=== PATIENT | female | born 1950 | race Caucasian/White ===

== ENCOUNTER 2016-06-23 09:10 | Outpatient (CLI) | payer OTHER | END 2016-06-23 09:11 | disposition home or self-care (01) | DX: Z12.31 Encounter for screening mammogram for malignant neoplasm of breast (principal) ==

== ENCOUNTER 2016-10-07 13:08 | Outpatient (CLI) | payer OTHER ==
--- NOTE | 2016-10-07 18:14 | Ultrasound Report ---
ULTRASOUND OF THE NECK: 10/07/2016 CLINICAL HISTORY: The patient has a soft tissue prominence in her left neck. A 66-year-old female wit h a soft tissue mass involving the left neck and shoulder. The patient noticed this soft mass over last one and one-half years. TECHNIQUE: Real-time scanning was performed with service center representative static images obtained. FINDINGS: There is a well-circumscribed mildly hypoechoic soft tissue mass in the left neck immediat graeme posterior to the subcutaneous soft tissues. This is in the muscle layer of the left neck. It denise ures 3.5 cm by 0.95 cm by 1.5 cm. The finding most likely represents a benign lipoma. Recommend a MRI of the soft tissues of the left neck/shoulder to further confirm the benign origin of this finding. IMPRESSION: A 3.5 CM BY 0.95 CM BY 1.5 CM WELL-CIRCUMSCRIBED MASS INVOLVING THE MUSCLE LAYER IMMEDIA TELY BENEATH THE SUBCUTANEOUS SOFT TISSUES AT THE JUNCTION OF THE LEFT NECK AND SHOULDER. 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 RECOMMEND A MRI OF THE SOFT TISSUES OF THE LEFT NECK SHOULDE R JUNCTION WITHIN THE LEFT SUPRACLAVICULAR REGION TO FURTHER CONFIRM THIS BENIGN ETIOLOGY. JOB #: [id number] EXT JOB #:[id number]
== END 2016-10-07 13:09 | disposition home or self-care (01) ==
LOC: DI 13:08
PROVIDERS: ATTEND Family Medicine
DX: M79.9 Soft tissue disorder, unspecified (principal)
CPT/HCPCS: 76536

== ENCOUNTER 2017-05-05 14:46 | Outpatient (CLI) | payer OTHER | END 2017-05-05 14:47 | disposition home or self-care (01) | LOC: SC 14:46 | PROVIDERS: ATTEND Nurse Practitioner Family | DX: G47.33 Obstructive sleep apnea (adult) (pediatric) (principal); F32.9 Major depressive disorder, single episode, unspecified | CPT/HCPCS: 99204; 99212 ==

== ENCOUNTER 2017-07-02 22:40 | Outpatient (CLI) | payer OTHER | END 2017-07-02 22:41 | disposition home or self-care (01) | LOC: SC 22:40 | PROVIDERS: ATTEND Internal Medicine Pulmonary Disease | DX: G47.33 Obstructive sleep apnea (adult) (pediatric) (principal); G47.61 Periodic limb movement disorder | CPT/HCPCS: 95810 ==

== ENCOUNTER 2017-08-12 10:43 | Outpatient (CLI) | payer OTHER | END 2017-08-12 10:44 | disposition home or self-care (01) | LOC: SC 10:43 | PROVIDERS: ATTEND Nurse Practitioner Family | DX: G47.33 Obstructive sleep apnea (adult) (pediatric) (principal); G47.61 Periodic limb movement disorder | CPT/HCPCS: 99212; 99214 ==

== ENCOUNTER 2017-08-26 09:05 | Outpatient (CLI) | payer OTHER ==
[2017-08-26 12:33] LABS: BASOPHILS # (AUTO) 0.1 10^3/uL (0.0-0.1); EOSINOPHILS # (AUTO) 0.3 10^3/uL (0.0-0.7); EOSINOPHILS % (AUTO) 5.6 %; HGB - HEMOGLOBIN 13.3 g/dL (12.0-16.0); LYMPHOCYTES # (AUTO) 1.7 10^3/uL (1.5-3.5); LYMPHOCYTES % (AUTO) 30.3 %; MEAN CORPUSCULAR HEMOGLOBIN 33.1 pg (27.0-31.0); MEAN CORPUSCULAR HGB CONC 34.2 g/dL (32.0-36.0); MEAN CORPUSCULAR VOLUME 96.9 fL (81.0-99.0); MEAN PLATELET VOLUME 7.4 fL (7.9-10.8); MONOCYTES # (AUTO) 0.5 10^3/uL (0.0-1.0); MONOCYTES % (AUTO) 8.9 %; NEUTROPHILS % (AUTO) 54.2 %; PLT - PLATELET COUNT 234 10^3/uL (130-450); RED CELL DISTRIBUTION WIDTH 12.4 % (12.0-15.0); WHITE BLOOD COUNT 5.6 x10^3/uL (4.8-10.8)
[2017-08-26 13:46] LABS: ALBUMIN 3.9 g/dL (3.2-5.5); ALBUMIN/GLOBULIN RATIO 1.2 (1.0-2.2); ALKALINE PHOSPHATASE 67 IU/L (42-121); ALT ALANINE AMINOTRANSFERASE 37 IU/L (10-60); AST ASPARTATE AMINOTRANSFERASE 37 IU/L (10-42); BILIRUBIN,TOTAL 0.4 mg/dL (0.2-1.0); BUN - BLOOD UREA NITROGEN 16 mg/dL (6-20); CALCIUM 9.2 mg/dL (8.5-10.3); CARBON DIOXIDE - CO2 24 mmol/L (21-32); CHLORIDE 106 mmol/L (101-111); CHOL/HDL RATIO 3.7 (<4.4); CHOLESTEROL 220 mg/dL; CREATININE 0.8 mg/dL (0.4-1.0); GFR - MDRD 72 (>89); GLUCOSE 107 mg/dL (70-100); HDL CHOLESTEROL 59 mg/dL; LDL CHOLESTEROL,CALCULATED 133 mg/dL; LDL/HDL RATIO 2.3 (<4.4); SODIUM 136 mmol/L (135-145); TOTAL PROTEIN 7.1 g/dL (6.7-8.2); VLDL CHOLESTEROL 28 mg/dL
== END 2017-08-26 09:06 | disposition home or self-care (01) ==
LOC: LAB.WCP 09:05
PROVIDERS: ATTEND Family Medicine
DX: I10 Essential (primary) hypertension (principal); E66.9 Obesity, unspecified
CPT/HCPCS: 36415; 80053; 80061; 83721; 84443; 85025

== ENCOUNTER 2017-10-13 10:40 | Outpatient (CLI) | payer MEDICARE, OTHER | END 2017-10-13 10:41 | disposition home or self-care (01) | LOC: SC 10:40 | PROVIDERS: ATTEND Nurse Practitioner Family | DX: G47.33 Obstructive sleep apnea (adult) (pediatric) (principal) | CPT/HCPCS: 99214; G0463; 99212 ==

== ENCOUNTER 2017-11-11 10:33 | Outpatient (CLI) | payer MEDICARE | END 2017-11-11 10:34 | disposition home or self-care (01) | LOC: SC 10:33 | PROVIDERS: ATTEND Nurse Practitioner Family | DX: G47.33 Obstructive sleep apnea (adult) (pediatric) (principal) | CPT/HCPCS: 99214; G0463; 99212 ==